=== PATIENT | female | born 1965 | race Caucasian/White ===

== ENCOUNTER 2021-10-18 16:21 | Emergency (ER) | payer BC ==
[~2021-10-18] VITALS: Ht 165.1 cm; Wt 76.7 kg
[2021-10-18 16:28] VITALS: BP 151/90
--- NOTE | 2021-10-18 16:33 | NUR ---
PT AMBULATED TO A WITH A STEADY GAIT.
--- NOTE | 2021-10-18 16:33 | NUR ---
55 Y/O FEMALE C/O RIGHT KNEE PAIN 8 X1WEEK. DENIES TRAUMA/INJURY. DENIES FEVER/CHILLS. DENIES N/V/D. DENIES PMH NKA
--- NOTE | 2021-10-18 16:34 | NUR ---
DR. YAÑEZ WITH PT FOR FURTHER EVALUATION.
--- NOTE | 2021-10-18 16:45 | NUR ---
PT TAKEN TO XR VIA W/C.
--- NOTE | 2021-10-18 16:52 | NUR ---
PT TAKEN TO [facility] A VIA W/C.
[2021-10-18] MEDS ORDERED: NAPR-1847 PO (17:48)
--- NOTE | 2021-10-18 18:00 | NUR ---
COVID SWAB SENT TO LAB GIVEN TO SMI[facility]
--- NOTE | 2021-10-18 18:02 | NUR ---
Patient discharged with v/s stable. Written and verbal after care instructions given and explained. Patient alert, oriented and verbalized understanding of instructions. Ambulatory with steady gait. All questions addressed prior to discharge. ID band removed. Patient advised to follow up with PMD. Rx of NAPOXEN given. Patient educated on indication of medication including possible reaction and side effects. Opportunity to ask questions provided and answered.
[2021-10-18 18:09] VITALS: BP 142/82
== END 2021-10-18 18:09 | disposition home or self-care (01) ==
LOC: MED 16:21
DX: M13.861 Other specified arthritis, right knee (principal); Z20.822 Contact with and (suspected) exposure to COVID-19; Z79.899 Other long term (current) drug therapy
CPT/HCPCS: 73562; 99284